=== PATIENT | female | born 1945 | race Caucasian/White ===

== ENCOUNTER → 2017-10-04 | Outpatient (CLI) | payer MEDICARE ==
[~2017-10-04] MED LIST: DOXYCYCLINE HY100 MG PO; LEVOTHYROXINE50 MCG PO; LISINOPRIL-HCT1 EAC1 PO; MELOXICAM7.5 MG PO; METFORMIN HCL500 MG PO
--- NOTE | 2017-10-04 18:19 | Diagnostic Imaging Report ---
PROCEDURE:X-RAY ABDOMEN - KUB COMPARISON:Patients [facility], CT, CT ABDOMEN/PELVIS WO, 04/21/2017, 21:21. Patients [facility], DX, ABDOMEN-1VIEW (KUB), 06/01/2017, 9:58. INDICATIONS:KIDNEY STONE CHECK UP FINDINGS: Nonobstructive bowel gas pattern with moderate amount of retained stool. 9 mm radiopaque density projecting over the left 12th rib corresponds to calcification in the splenic artery. Multiple curvilinear radiopaque densities project over the left renal shadow, and correspond to abdominal wall hernia mesh bea. No definite calcifications project over the renal shadows or expected course of the ureters. No acute bony abnormalities. 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 CONCLUSION: No suspicious radiopaque densities project over the genitourinary tract Rubin Hanna M.D. Dictated by: Rubin Hanna M.D. on 10/04/2017 at 18:29 Electronically approved by: Rubin Hanna M.D. on 10/04/2017 at 18:29
== END ==
LOC: RAD 17:01
PROVIDERS: ATTEND Urology
DX: N20.0 Calculus of kidney (principal)
CPT/HCPCS: 74018

== ENCOUNTER 2021-12-16 12:20 | Inpatient (IN) | payer MEDICARE ==
[~2021-12-16] VITALS: Ht 152.4 cm; Wt 111.3 kg
[~2021-12-16 12:20] MED LIST changes: +PREDNISONE 20 MG TAB PO SCH
[2021-12-16] MEDS ORDERED: ALBUTEROL/IPRATROPIUM 3 ML NEB NEB ONE (12:30)
[2021-12-16] MEDS ORDERED: METHYLPREDNISOLONE SOD SUCC 125 MG/2ML VIAL IV SCH (12:33)
[2021-12-16 12:45] LABS: BASOPHILS # (AUTO) 0.1 (0.0-0.1); BASOPHILS % 0.6 % (0.0-1.0); EOSINOPHILS # (AUTO) 0.1 (0.0-0.4); EOSINOPHILS % 0.6 % (0.0-6.0); HEMATOCRIT 43.7 % (34.2-44.1); HEMOGLOBIN 13.2 g/dL (12.0-16.0); LYMPHOCYTES # (AUTO) 2.2 (1.0-3.2); LYMPHOCYTES % 24.9 % (18.0-39.1); MEAN CORPUSCULAR HEMOGLOBIN 26.9 pg (28-32); MEAN CORPUSCULAR HGB CONC 30.2 g/dL (31-35); MONOCYTES # (AUTO) 0.7 (0.2-0.8); MONOCYTES % 8.3 % (4.4-11.3); NEUTROPHILS # (AUTO) 5.6 (2.1-6.9); NEUTROPHILS % 64.7 % (38.7-80.0); PLATELET COUNT 262 x10e3/uL (140-360); RED BLOOD COUNT 4.91 x10e6/uL (3.6-5.1); RED CELL DISTRIBUTION WIDTH 15.5 % (11.7-14.4)
[2021-12-16 12:53] LABS: INR 0.98; PROTHROMBIN TIME 13.9 seconds (11.9-14.5)
[2021-12-16 12:54] LABS: PARTIAL THROMBOPLASTIN TIME 24.3 seconds (23.8-35.5)
[2021-12-16] MEDS ORDERED: SODIUM CHLORIDE 0.9% 1000ML 1,000 ML IV STA (12:58)
[2021-12-16 13:05] LABS: ALBUMIN 3.8 g/dL (3.5-5.0); ALBUMIN/GLOBULIN RATIO 1.3 (0.8-2.0); ANION GAP 13.6 mmol/L (8-16); CALCIUM 8.2 mg/dL (8.4-10.2); CREATININE, SERUM 1.07 mg/dL (0.57-1.11); POTASSIUM 3.6 mmol/L (3.5-5.1)
[2021-12-16 13:25] LABS: ABG PH 7.36 (7.35-7.45)
[2021-12-16 13:26] LABS: ABG HCO3 41 mmol/L (22-26); ABG PCO2 72 mmHg (35-45); ABG PO2 430 mmHg (80-105); ABG TCO2 43
[2021-12-16] MEDS ORDERED: IOPAMIDOL 370 MG/ML 100 ML INFUS..BTL INJ ONE (14:20)
[2021-12-16] MEDS ORDERED: SODIUM CHLORIDE 0.9% 1000ML 1,000 ML IV SCH (15:15)
[2021-12-16 15:51] LABS: CLARITY,URINE CLOUDY (CLEAR); COLOR,URINE YELLOW (YELLOW); KETONES,URINE NEGATIVE (NEGATIVE); LEUKOCYTE ESTERASE ,URINE TRACE (NEGATIVE); NITRITE,URINE NEGATIVE (NEGATIVE); PROTEIN,URINE DIPSTICK 1+ (NEGATIVE); URINE UROBILINOGEN 0.2 mg/dL (0.2 - 1)
[2021-12-16 16:05] LABS: BACTERIA,URINE MODERATE /HPF; EPITHELIAL CELLS,URINE MANY /LPF
[2021-12-16] MEDS ORDERED: FUROSEMIDE 40 MG TAB PO ONE (17:00)
[2021-12-16] MEDS: DOXYCYCLINE HYCLATE TABLET 100 MG TAB PO SCH (18:38)
[2021-12-16] MEDS: ALBUTEROL/IPRATROPIUM 3 ML NEB NEB SCH ×2 (19:15→23:20)
[2021-12-16 20:00] VITALS: BP 166/72
[2021-12-16 20:38] LABS: CREATINE KINASE MB 2.7 ng/mL (0-5.0)
[2021-12-16] MEDS: HEPARIN SOD (PORCINE) 5,000 UNIT/ML VIAL SC SCH (21:03)
[2021-12-16 21:15] VITALS: BP 166/72
[2021-12-16] MEDS ORDERED: EDARBI40 MG PO (22:33)
[2021-12-16 23:31] VITALS: BP 166/72
[2021-12-17] VITALS (8 sets, daily range): BP systolic 118–156; BP diastolic 60–80
[2021-12-17] MEDS: ALBUTEROL/IPRATROPIUM 3 ML NEB NEB SCH ×6 (03:30→23:41)
[2021-12-17] MEDS: LEVOTHYROXINE SODIUM 50 MCG TAB PO SCH (05:16)
[2021-12-17 05:46] LABS: BASOPHILS % 0.1 % (0.0-1.0); LYMPHOCYTES # (AUTO) 0.7 (1.0-3.2); LYMPHOCYTES % 8.8 % (18.0-39.1); MEAN CORPUSCULAR HEMOGLOBIN 26.5 pg (28-32); MEAN CORPUSCULAR VOLUME 88.5 fL (81-99); MONOCYTES # (AUTO) 0.7 (0.2-0.8); MONOCYTES % 9.5 % (4.4-11.3); NEUTROPHILS # (AUTO) 5.9 (2.1-6.9); NEUTROPHILS % 80.8 % (38.7-80.0); PLATELET COUNT 248 x10e3/uL (140-360); RED BLOOD COUNT 4.52 x10e6/uL (3.6-5.1); RED CELL DISTRIBUTION WIDTH 15.3 % (11.7-14.4)
[2021-12-17 06:04] LABS: ANION GAP 15.7 mmol/L (8-16); CREATININE, SERUM 1.16 mg/dL (0.57-1.11); POTASSIUM 3.7 mmol/L (3.5-5.1)
[2021-12-17 06:33] LABS: % IRON SATURATION 5 % (15-50); IRON 27 ug/dL (50-170); TOTAL IRON BINDING CAPACITY 494 ug/dL (261-478); TRANSFERRIN 353 mg/dL (180-382)
[2021-12-17 06:52] LABS: CREATINE KINASE MB 2.6 ng/mL (0-5.0)
[2021-12-17] MEDS: PREDNISONE 20 MG TAB PO SCH ×2 (08:00→17:27)
[2021-12-17] MEDS ORDERED: FUROSEMIDE 40 MG TAB PO ONE (09:00)
[2021-12-17] MEDS: LISINOPRIL 20 MG TAB PO SCH (09:00)
[2021-12-17] MEDS: IRON SUCROSE 100 MG in SODIUM CHLORIDE 0.9% 100 ML 100 ML IV SCH (10:00)
[2021-12-17] MEDS: HYDROCHLOROTHIAZIDE 25 MG TAB PO SCH (10:22)
[2021-12-17] MEDS: DOXYCYCLINE HYCLATE TABLET 100 MG TAB PO SCH (10:26)
[2021-12-17] MEDS: HEPARIN SOD (PORCINE) 5,000 UNIT/ML VIAL SC SCH ×2 (10:34→21:06)
[2021-12-18] VITALS (8 sets, daily range): BP systolic 130–151; BP diastolic 55–90
[2021-12-18] MEDS: ALBUTEROL/IPRATROPIUM 3 ML NEB NEB SCH ×6 (03:45→23:09)
[2021-12-18] MEDS: LEVOTHYROXINE SODIUM 50 MCG TAB PO SCH (05:15)
[2021-12-18] MEDS: HYDROCHLOROTHIAZIDE 25 MG TAB PO SCH (09:04)
[2021-12-18] MEDS: HEPARIN SOD (PORCINE) 5,000 UNIT/ML VIAL SC SCH ×2 (09:04→21:14)
[2021-12-18] MEDS: DOXYCYCLINE HYCLATE TABLET 100 MG TAB PO SCH (09:05)
[2021-12-18] MEDS: PREDNISONE 20 MG TAB PO SCH ×2 (09:05→16:59)
[2021-12-18] MEDS ORDERED: SODIUM CHLORIDE 0.9% 250ML 250 ML ONE (09:23)
[2021-12-18] MEDS: IRON SUCROSE 100 MG in SODIUM CHLORIDE 0.9% 100 ML 100 ML IV SCH (11:22)
[2021-12-18] MEDS: METOPROLOL TARTRATE INJ 1 MG/ML VIAL IV PRN (22:28)
[2021-12-19] VITALS (8 sets, daily range): BP systolic 133–164; BP diastolic 53–71
[2021-12-19] MEDS: ALBUTEROL/IPRATROPIUM 3 ML NEB NEB SCH ×6 (03:50→22:25)
[2021-12-19] MEDS: LEVOTHYROXINE SODIUM 50 MCG TAB PO SCH (05:57)
[2021-12-19] MEDS: LISINOPRIL 20 MG TAB PO SCH (10:02)
[2021-12-19] MEDS: HYDROCHLOROTHIAZIDE 25 MG TAB PO SCH (10:02)
[2021-12-19] MEDS: IRON SUCROSE 100 MG in SODIUM CHLORIDE 0.9% 100 ML 100 ML IV SCH (10:03)
[2021-12-19] MEDS: PREDNISONE 20 MG TAB PO SCH (10:03)
[2021-12-19] MEDS: DOXYCYCLINE HYCLATE TABLET 100 MG TAB PO SCH (10:53)
[2021-12-19] MEDS: HEPARIN SOD (PORCINE) 5,000 UNIT/ML VIAL SC SCH (11:02)
[2021-12-19] MEDS: ENOXAPARIN SOD INJ 120 MG/0.8 ML SYR SC SCH (20:50)
[2021-12-19] MEDS: FUROSEMIDE INJ 10 MG/ML 4 ML VIAL IV SCH (20:50)
[2021-12-20] VITALS (9 sets, daily range): BP systolic 100–167; BP diastolic 50–95
[2021-12-20] MEDS: ALBUTEROL/IPRATROPIUM 3 ML NEB NEB SCH ×6 (02:38→23:10)
[2021-12-20] MEDS: ENOXAPARIN SOD INJ 120 MG/0.8 ML SYR SC SCH ×2 (05:30→17:21)
[2021-12-20] MEDS: LEVOTHYROXINE SODIUM 50 MCG TAB PO SCH (05:30)
[2021-12-20 06:03] LABS: BASOPHILS % 0.3 % (0.0-1.0); EOSINOPHILS % 0.4 % (0.0-6.0); HEMATOCRIT 40.1 % (34.2-44.1); HEMOGLOBIN 12.3 g/dL (12.0-16.0); LYMPHOCYTES # (AUTO) 1.1 (1.0-3.2); LYMPHOCYTES % 11.8 % (18.0-39.1); MEAN CORPUSCULAR HGB CONC 30.7 g/dL (31-35); MEAN CORPUSCULAR VOLUME 87.9 fL (81-99); MONOCYTES # (AUTO) 1.2 (0.2-0.8); MONOCYTES % 12.5 % (4.4-11.3); NEUTROPHILS % 72.3 % (38.7-80.0); PLATELET COUNT 238 x10e3/uL (140-360); RED BLOOD COUNT 4.56 x10e6/uL (3.6-5.1); RED CELL DISTRIBUTION WIDTH 15.4 % (11.7-14.4)
[2021-12-20 06:37] LABS: ANION GAP 13.4 mmol/L (8-16); CALCIUM 9.6 mg/dL (8.4-10.2); CREATININE, SERUM 1.03 mg/dL (0.57-1.11); POTASSIUM 3.4 mmol/L (3.5-5.1)
[2021-12-20] MEDS: PREDNISONE 20 MG TAB PO SCH (08:59)
[2021-12-20] MEDS: FUROSEMIDE INJ 10 MG/ML 4 ML VIAL IV SCH (08:59)
[2021-12-20] MEDS: LISINOPRIL 20 MG TAB PO SCH ×2 (09:00)
[2021-12-20] MEDS ORDERED: DILTIAZEM HCL ER 120 MG CAP PO SCH (09:00)
[2021-12-20] MEDS: DOXYCYCLINE HYCLATE TABLET 100 MG TAB PO SCH (09:00)
[2021-12-20] MEDS: METOPROLOL TARTRATE INJ 1 MG/ML VIAL IV PRN ×2 (12:57→21:56)
[2021-12-20] MEDS: ACETAZOLAMIDE 250 MG TAB PO SCH (17:21)
[2021-12-21] MEDS: ALBUTEROL/IPRATROPIUM 3 ML NEB NEB SCH ×6 (03:10→23:35)
[2021-12-21 04:00] VITALS: BP 134/51
[2021-12-21] MEDS ORDERED: DEXTROSE 50% SYRINGE 50 ML IV PRN (05:00)
[2021-12-21] MEDS: ENOXAPARIN SOD INJ 120 MG/0.8 ML SYR SC SCH ×2 (05:22→17:34)
[2021-12-21] MEDS: LEVOTHYROXINE SODIUM 50 MCG TAB PO SCH (05:22)
[2021-12-21 05:33] LABS: BASOPHILS % 0.3 % (0.0-1.0); EOSINOPHILS # (AUTO) 0.1 (0.0-0.4); EOSINOPHILS % 0.4 % (0.0-6.0); HEMATOCRIT 42.2 % (34.2-44.1); HEMOGLOBIN 12.9 g/dL (12.0-16.0); LYMPHOCYTES # (AUTO) 1.1 (1.0-3.2); LYMPHOCYTES % 9.5 % (18.0-39.1); MEAN CORPUSCULAR HEMOGLOBIN 27.1 pg (28-32); MEAN CORPUSCULAR HGB CONC 30.6 g/dL (31-35); MEAN CORPUSCULAR VOLUME 88.7 fL (81-99); MONOCYTES # (AUTO) 1.1 (0.2-0.8); MONOCYTES % 9.8 % (4.4-11.3); NEUTROPHILS % 77.8 % (38.7-80.0); PLATELET COUNT 246 x10e3/uL (140-360); RED BLOOD COUNT 4.76 x10e6/uL (3.6-5.1); RED CELL DISTRIBUTION WIDTH 15.7 % (11.7-14.4)
[2021-12-21 06:00] LABS: ANION GAP 15.4 mmol/L (8-16); CALCIUM 9.3 mg/dL (8.4-10.2); CREATININE, SERUM 1.41 mg/dL (0.57-1.11); POTASSIUM 3.4 mmol/L (3.5-5.1)
[2021-12-21 07:59] VITALS: BP 123/62
[2021-12-21] MEDS: INSULIN LISPRO 100 UNIT/1 ML 3ML VIAL SQ SCH ×4 (08:00→22:47)
[2021-12-21 08:32] VITALS: BP 123/62
[2021-12-21] MEDS: FUROSEMIDE INJ 10 MG/ML 4 ML VIAL IV SCH (08:50)
[2021-12-21] MEDS: PREDNISONE 20 MG TAB PO SCH (08:50)
[2021-12-21] MEDS: LISINOPRIL 20 MG TAB PO SCH (08:54)
[2021-12-21] MEDS: DOXYCYCLINE HYCLATE TABLET 100 MG TAB PO SCH (08:55)
[2021-12-21] MEDS ORDERED: DILTIAZEM HCL 180 MG CAP ER PO SCH (09:00)
[2021-12-21] MEDS: ACETAZOLAMIDE 250 MG TAB PO SCH (09:03)
[2021-12-21] MEDS ORDERED: POTASSIUM CHLORIDE 20 MEQ TAB CR PO PRN (09:45)
[2021-12-21 11:36] VITALS: BP 116/46
[2021-12-21] MEDS: DILTIAZEM HCL CR 120MG TAB PO SCH (17:33)
[2021-12-21 20:00] VITALS: BP 144/49
[2021-12-21 23:53] VITALS: BP 106/56
[2021-12-22] VITALS (8 sets, daily range): BP systolic 118–150; BP diastolic 31–52
[2021-12-22] MEDS: ALBUTEROL/IPRATROPIUM 3 ML NEB NEB SCH ×6 (03:15→23:00)
[2021-12-22] MEDS: ENOXAPARIN SOD INJ 120 MG/0.8 ML SYR SC SCH ×2 (05:18→16:42)
[2021-12-22] MEDS: LEVOTHYROXINE SODIUM 50 MCG TAB PO SCH (05:18)
[2021-12-22] MEDS ORDERED: PREDNISONE 10 MG TAB PO SCH (07:30)
[2021-12-22] MEDS: FUROSEMIDE INJ 10 MG/ML 4 ML VIAL IV SCH (08:53)
[2021-12-22] MEDS: ACETAZOLAMIDE 250 MG TAB PO SCH (08:54)
[2021-12-22] MEDS: INSULIN LISPRO 100 UNIT/1 ML 3ML VIAL SQ SCH ×4 (08:54→21:35)
[2021-12-22] MEDS: DILTIAZEM HCL CR 120MG TAB PO SCH (08:54)
[2021-12-22] MEDS: DOXYCYCLINE HYCLATE TABLET 100 MG TAB PO SCH (08:55)
[2021-12-22] MEDS: LISINOPRIL 20 MG TAB PO SCH (08:55)
[2021-12-22 12:28] LABS: ANION GAP 14.3 mmol/L (8-16); CALCIUM 8.7 mg/dL (8.4-10.2); CREATININE, SERUM 1.17 mg/dL (0.57-1.11); POTASSIUM 3.3 mmol/L (3.5-5.1)
[2021-12-22] MEDS: DILTIAZEM HCL 180 MG CAP ER PO SCH (16:41)
[2021-12-23] VITALS (11 sets, daily range): BP systolic 105–160; BP diastolic 43–82
[2021-12-23] MEDS: ALBUTEROL/IPRATROPIUM 3 ML NEB NEB SCH ×2 (02:40→06:54)
[2021-12-23 05:03] LABS: BASOPHILS % 0.4 % (0.0-1.0); EOSINOPHILS # (AUTO) 0.1 (0.0-0.4); EOSINOPHILS % 0.8 % (0.0-6.0); HEMATOCRIT 37.2 % (34.2-44.1); HEMOGLOBIN 11.3 g/dL (12.0-16.0); LYMPHOCYTES # (AUTO) 1.2 (1.0-3.2); LYMPHOCYTES % 11.1 % (18.0-39.1); MEAN CORPUSCULAR HEMOGLOBIN 26.9 pg (28-32); MEAN CORPUSCULAR HGB CONC 30.4 g/dL (31-35); MEAN CORPUSCULAR VOLUME 88.6 fL (81-99); MONOCYTES % 9.3 % (4.4-11.3); NEUTROPHILS # (AUTO) 8.1 (2.1-6.9); NEUTROPHILS % 74.4 % (38.7-80.0); PLATELET COUNT 203 x10e3/uL (140-360); RED CELL DISTRIBUTION WIDTH 16.1 % (11.7-14.4)
[2021-12-23] MEDS: ENOXAPARIN SOD INJ 120 MG/0.8 ML SYR SC SCH ×2 (05:12→17:11)
[2021-12-23 05:36] LABS: ANION GAP 13.9 mmol/L (8-16); CALCIUM 8.6 mg/dL (8.4-10.2); CREATININE, SERUM 1.41 mg/dL (0.57-1.11); POTASSIUM 3.9 mmol/L (3.5-5.1)
[2021-12-23] MEDS: LEVOTHYROXINE SODIUM 50 MCG TAB PO SCH (05:45)
[2021-12-23] MEDS: INSULIN LISPRO 100 UNIT/1 ML 3ML VIAL SQ SCH ×4 (07:30→20:41)
[2021-12-23] MEDS: FUROSEMIDE INJ 10 MG/ML 4 ML VIAL IV SCH (08:31)
[2021-12-23] MEDS: DILTIAZEM HCL 180 MG CAP ER PO SCH ×2 (08:31→17:11)
[2021-12-23] MEDS: ACETAZOLAMIDE 250 MG TAB PO SCH (08:31)
[2021-12-23] MEDS: LISINOPRIL 20 MG TAB PO SCH (08:31)
[2021-12-23] MEDS: DOXYCYCLINE HYCLATE TABLET 100 MG TAB PO SCH (08:31)
[2021-12-23] MEDS: IPRATROPIUM BROMIDE 0.02% 2.5 ML NEB NEB SCH ×2 (13:25→19:10)
[2021-12-23] MEDS: ALBUTEROL SULF 0.083% NEB SOLN 3 ML NEB NEB SCH ×2 (13:25→19:10)
[2021-12-24] VITALS (10 sets, daily range): BP systolic 125–152; BP diastolic 40–58
[2021-12-24] MEDS: IPRATROPIUM BROMIDE 0.02% 2.5 ML NEB NEB SCH ×4 (00:45→19:25)
[2021-12-24] MEDS: ALBUTEROL SULF 0.083% NEB SOLN 3 ML NEB NEB SCH ×4 (00:45→19:25)
[2021-12-24] MEDS: ENOXAPARIN SOD INJ 120 MG/0.8 ML SYR SC SCH (05:04)
[2021-12-24] MEDS: LEVOTHYROXINE SODIUM 50 MCG TAB PO SCH (05:26)
[2021-12-24] MEDS: INSULIN LISPRO 100 UNIT/1 ML 3ML VIAL SQ SCH ×4 (07:30→20:18)
[2021-12-24] MEDS: LISINOPRIL 20 MG TAB PO SCH (08:38)
[2021-12-24] MEDS: DILTIAZEM HCL 180 MG CAP ER PO SCH ×2 (08:38→16:35)
[2021-12-24] MEDS: FUROSEMIDE INJ 10 MG/ML 4 ML VIAL IV SCH (08:38)
[2021-12-24] MEDS: ACETAZOLAMIDE 250 MG TAB PO SCH (08:38)
[2021-12-24 11:24] LABS: ANION GAP 15.2 mmol/L (8-16); CREATININE, SERUM 1.19 mg/dL (0.57-1.11); POTASSIUM 4.2 mmol/L (3.5-5.1)
[2021-12-24] MEDS: TRAMADOL HCL 50 MG TAB PO PRN (20:16)
[2021-12-24] MEDS: ONDANSETRON HCL INJ 2MG/ML 2ML 2 MG/ML VIAL IV PRN (20:16)
[2021-12-24] MEDS: Morphine 2mg Syringe 2 MG/ML SYR IV PRN (22:02)
[2021-12-24] MEDS ORDERED: DIATRIZOATE MEGL/DIATRIZOA SOD 30 ML BTL PO ONE (22:03)
[2021-12-24] MEDS ORDERED: IOPAMIDOL 370 MG/ML 100 ML INFUS..BTL INJ ONE (23:02)
[2021-12-25] VITALS (17 sets, daily range): BP systolic 84–143; BP diastolic 28–70
[2021-12-25] MEDS: IPRATROPIUM BROMIDE 0.02% 2.5 ML NEB NEB SCH ×4 (00:40→20:00)
[2021-12-25] MEDS: ALBUTEROL SULF 0.083% NEB SOLN 3 ML NEB NEB SCH ×4 (00:40→20:00)
[2021-12-25 01:03] LABS: BASOPHILS # (AUTO) 0.1 (0.0-0.1); BASOPHILS % 0.3 % (0.0-1.0); EOSINOPHILS # (AUTO) 0.1 (0.0-0.4); EOSINOPHILS % 0.3 % (0.0-6.0); HEMATOCRIT 35.4 % (34.2-44.1); HEMOGLOBIN 10.7 g/dL (12.0-16.0); LYMPHOCYTES # (AUTO) 0.8 (1.0-3.2); LYMPHOCYTES % 5.2 % (18.0-39.1); MEAN CORPUSCULAR HGB CONC 30.2 g/dL (31-35); MEAN CORPUSCULAR VOLUME 89.4 fL (81-99); MONOCYTES # (AUTO) 1.3 (0.2-0.8); MONOCYTES % 8.3 % (4.4-11.3); NEUTROPHILS # (AUTO) 12.6 (2.1-6.9); NEUTROPHILS % 81.9 % (38.7-80.0); PLATELET COUNT 187 x10e3/uL (140-360); RED BLOOD COUNT 3.96 x10e6/uL (3.6-5.1); RED CELL DISTRIBUTION WIDTH 16.2 % (11.7-14.4)
[2021-12-25 01:20] LABS: ALBUMIN 3.3 g/dL (3.5-5.0); ALBUMIN/GLOBULIN RATIO 1.2 (0.8-2.0); ANION GAP 14.1 mmol/L (8-16); CALCIUM 8.9 mg/dL (8.4-10.2); CREATININE, SERUM 1.34 mg/dL (0.57-1.11); POTASSIUM 4.1 mmol/L (3.5-5.1)
[2021-12-25] MEDS: Morphine 2mg Syringe 2 MG/ML SYR IV PRN (01:32)
[2021-12-25] MEDS: TRAMADOL HCL 50 MG TAB PO PRN (02:09)
[2021-12-25] MEDS: ONDANSETRON HCL INJ 2MG/ML 2ML 2 MG/ML VIAL IV PRN ×2 (04:54→20:29)
[2021-12-25] MEDS: HYDROMORPHONE 1MG/1ML INJ IV PRN ×3 (04:54→17:45)
[2021-12-25] MEDS: LEVOTHYROXINE SODIUM 50 MCG TAB PO SCH (06:13)
[2021-12-25] MEDS: INSULIN LISPRO 100 UNIT/1 ML 3ML VIAL SQ SCH ×4 (07:30→21:00)
[2021-12-25] MEDS: LISINOPRIL 20 MG TAB PO SCH (09:00)
[2021-12-25] MEDS ORDERED: APIXABAN 5 MG TABLET PO SCH (09:00)
[2021-12-25] MEDS: DILTIAZEM HCL 180 MG CAP ER PO SCH ×2 (09:00→17:00)
[2021-12-25] MEDS: FUROSEMIDE INJ 10 MG/ML 4 ML VIAL IV SCH (09:00)
[2021-12-25] MEDS: ACETAZOLAMIDE 250 MG TAB PO SCH (09:36)
[2021-12-25] MEDS ORDERED: ONDANSETRON HCL 4 MG ORAL DISINTEGRATING TAB PO PRN (11:15)
[2021-12-25 14:47] LABS: BASOPHILS # (AUTO) 0.1 (0.0-0.1); BASOPHILS % 0.3 % (0.0-1.0); EOSINOPHILS % 0.1 % (0.0-6.0); HEMATOCRIT 32.7 % (34.2-44.1); HEMOGLOBIN 9.9 g/dL (12.0-16.0); LYMPHOCYTES # (AUTO) 0.8 (1.0-3.2); LYMPHOCYTES % 4.5 % (18.0-39.1); MEAN CORPUSCULAR HGB CONC 30.3 g/dL (31-35); MEAN CORPUSCULAR VOLUME 89.3 fL (81-99); MONOCYTES # (AUTO) 1.7 (0.2-0.8); MONOCYTES % 8.9 % (4.4-11.3); NEUTROPHILS % 80.5 % (38.7-80.0); PLATELET COUNT 188 x10e3/uL (140-360); RED BLOOD COUNT 3.66 x10e6/uL (3.6-5.1); RED CELL DISTRIBUTION WIDTH 16.3 % (11.7-14.4)
[2021-12-25 15:07] LABS: ALBUMIN 3.2 g/dL (3.5-5.0); ALBUMIN/GLOBULIN RATIO 1.2 (0.8-2.0); ANION GAP 15.9 mmol/L (8-16); CALCIUM 8.6 mg/dL (8.4-10.2); POTASSIUM 4.9 mmol/L (3.5-5.1)
[2021-12-25 15:09] LABS: CREATININE, SERUM 2.33 mg/dL (0.57-1.11)
[2021-12-25 18:44] LABS: BASOPHILS # (AUTO) 0.1 (0.0-0.1); BASOPHILS % 0.4 % (0.0-1.0); HEMATOCRIT 31.6 % (34.2-44.1); HEMOGLOBIN 9.5 g/dL (12.0-16.0); LYMPHOCYTES # (AUTO) 1.3 (1.0-3.2); LYMPHOCYTES % 6.2 % (18.0-39.1); MEAN CORPUSCULAR HEMOGLOBIN 27.1 pg (28-32); MEAN CORPUSCULAR HGB CONC 30.1 g/dL (31-35); MEAN CORPUSCULAR VOLUME 90.3 fL (81-99); MONOCYTES # (AUTO) 1.9 (0.2-0.8); NEUTROPHILS # (AUTO) 16.7 (2.1-6.9); NEUTROPHILS % 78.8 % (38.7-80.0); PLATELET COUNT 173 x10e3/uL (140-360); RED CELL DISTRIBUTION WIDTH 16.6 % (11.7-14.4)
[2021-12-25] MEDS ORDERED: SODIUM CHLORIDE 0.9% 1000ML 750 ML IV SCH (19:00)
[2021-12-25 19:07] LABS: ALBUMIN 3.1 g/dL (3.5-5.0); ALBUMIN/GLOBULIN RATIO 1.3 (0.8-2.0); ANION GAP 16.2 mmol/L (8-16); CALCIUM 8.4 mg/dL (8.4-10.2); CREATININE, SERUM 2.7 mg/dL (0.57-1.11)
[2021-12-25 19:08] LABS: POTASSIUM 5.2 mmol/L (3.5-5.1)
[2021-12-25] MEDS ORDERED: SODIUM CHLORIDE 0.9% 500ML 500 ML ONE (19:42)
[2021-12-25] MEDS ORDERED: SODIUM CHLORIDE 0.9% 500ML 500 ML IV ONE (20:00)
[2021-12-25] MEDS ORDERED: SODIUM CHLORIDE 0.9% 1000ML 500 ML IV ONE ×2 (21:45→22:45)
[2021-12-26] VITALS (53 sets, daily range): BP systolic 83–132; BP diastolic 24–99
[2021-12-26] MEDS: ONDANSETRON HCL INJ 2MG/ML 2ML 2 MG/ML VIAL IV PRN ×2 (00:07→20:07)
[2021-12-26] MEDS: IPRATROPIUM BROMIDE 0.02% 2.5 ML NEB NEB SCH ×5 (00:26→23:25)
[2021-12-26] MEDS: ALBUTEROL SULF 0.083% NEB SOLN 3 ML NEB NEB SCH ×5 (00:27→23:25)
[2021-12-26] MEDS ORDERED: SODIUM CHLORIDE 0.9% 1000ML 1,000 ML IV ONE (01:15)
[2021-12-26] MEDS ORDERED: ACETAMINOPHEN 1000 MG/100 ML IV PRN (01:15)
[2021-12-26] MEDS ORDERED: SODIUM CHLORIDE 0.9% 250ML 250 ML IV PRN (01:30)
[2021-12-26 02:10] LABS: BASOPHILS # (AUTO) 0.1 (0.0-0.1); BASOPHILS % 0.4 % (0.0-1.0); HEMATOCRIT 29.2 % (34.2-44.1); HEMOGLOBIN 8.7 g/dL (12.0-16.0); LYMPHOCYTES # (AUTO) 1.6 (1.0-3.2); LYMPHOCYTES % 7.1 % (18.0-39.1); MEAN CORPUSCULAR HGB CONC 29.8 g/dL (31-35); MEAN CORPUSCULAR VOLUME 90.7 fL (81-99); MONOCYTES # (AUTO) 1.9 (0.2-0.8); MONOCYTES % 8.6 % (4.4-11.3); NEUTROPHILS # (AUTO) 17.4 (2.1-6.9); NEUTROPHILS % 79.5 % (38.7-80.0); RED BLOOD COUNT 3.22 x10e6/uL (3.6-5.1); RED CELL DISTRIBUTION WIDTH 17.2 % (11.7-14.4)
[2021-12-26 02:12] LABS: PLATELET COUNT 118 x10e3/uL (140-360)
[2021-12-26 02:30] LABS: INR 1.03; PROTHROMBIN TIME 14.4 seconds (11.9-14.5)
[2021-12-26 02:39] LABS: ALBUMIN 2.8 g/dL (3.5-5.0); ALBUMIN/GLOBULIN RATIO 1.1 (0.8-2.0); ANION GAP 18.2 mmol/L (8-16); CALCIUM 7.4 mg/dL (8.4-10.2); CREATININE, SERUM 2.9 mg/dL (0.57-1.11); POTASSIUM 5.2 mmol/L (3.5-5.1)
[2021-12-26] MEDS ORDERED: CIPROFLOXACIN 400 MG/D5W 200ML 200 ML IV SCH (03:15)
[2021-12-26] MEDS ORDERED: METOCLOPRAMIDE HCL 10 MG/2ML VIAL IV ONE (04:45)
[2021-12-26] MEDS: SODIUM CHLORIDE 0.9% 1000ML 1,000 ML IV SCH ×3 (05:13→21:34)
[2021-12-26] MEDS ORDERED: SCOPOLAMINE 1.3 MG PATCH TOP ONE (05:15)
[2021-12-26] MEDS: SCOPOLAMINE 1.3 MG PATCH TOP SCH (05:25)
[2021-12-26] MEDS: METRONIDAZOLE 500MG/NS 100ML 100 ML IV SCH ×3 (05:25→21:02)
[2021-12-26] MEDS: LEVOTHYROXINE SODIUM 50 MCG TAB PO SCH (06:00)
[2021-12-26] MEDS: METOCLOPRAMIDE HCL 10 MG/2ML VIAL IV SCH ×3 (06:25→18:00)
[2021-12-26] MEDS ORDERED: SODIUM CHLORIDE 0.9% 1000ML 500 ML IV ONE ×2 (06:30→09:45)
[2021-12-26 06:39] LABS: AMYLASE 43 U/L (25-125); LIPASE 17 U/L (8-78)
[2021-12-26 06:51] LABS: CLARITY,URINE CLOUDY (CLEAR); COLOR,URINE YELLOW (YELLOW); KETONES,URINE NEGATIVE (NEGATIVE); LEUKOCYTE ESTERASE ,URINE NEGATIVE (NEGATIVE); NITRITE,URINE NEGATIVE (NEGATIVE); PROTEIN,URINE DIPSTICK 2+ (NEGATIVE); URINE UROBILINOGEN 0.2 mg/dL (0.2 - 1)
[2021-12-26 07:20] LABS: BACTERIA,URINE MANY /HPF; EPITHELIAL CELLS,URINE MODERATE /LPF
[2021-12-26] MEDS: INSULIN LISPRO 100 UNIT/1 ML 3ML VIAL SQ SCH ×4 (07:30→20:24)
[2021-12-26] MEDS ORDERED: BUMETANIDE INJ 0.25MG/ML 4ML VIAL IV STA (10:39)
[2021-12-26] MEDS: CIPROFLOXACIN 400 MG/D5W 200ML 200 ML IV SCH (11:00)
[2021-12-26] MEDS ORDERED: SOD POLYSTYRENE SULFONATE SUSP 15 GM/60 ML BTL PO ONE ×2 (11:00→17:30)
[2021-12-26 11:01] LABS: BASOPHILS # (AUTO) 0.1 (0.0-0.1); BASOPHILS % 0.2 % (0.0-1.0); HEMATOCRIT 25.7 % (34.2-44.1); HEMOGLOBIN 7.7 g/dL (12.0-16.0); LYMPHOCYTES # (AUTO) 1.1 (1.0-3.2); LYMPHOCYTES % 4.9 % (18.0-39.1); MEAN CORPUSCULAR HEMOGLOBIN 26.8 pg (28-32); MEAN CORPUSCULAR VOLUME 89.5 fL (81-99); MONOCYTES # (AUTO) 1.9 (0.2-0.8); MONOCYTES % 8.5 % (4.4-11.3); NEUTROPHILS # (AUTO) 18.4 (2.1-6.9); NEUTROPHILS % 82.7 % (38.7-80.0); PLATELET COUNT 149 x10e3/uL (140-360); RED BLOOD COUNT 2.87 x10e6/uL (3.6-5.1); RED CELL DISTRIBUTION WIDTH 17.2 % (11.7-14.4)
[2021-12-26 11:14] LABS: ALBUMIN 2.6 g/dL (3.5-5.0); ANION GAP 16.5 mmol/L (8-16); CREATININE, SERUM 3.19 mg/dL (0.57-1.11); POTASSIUM 4.5 mmol/L (3.5-5.1)
[2021-12-26 11:17] LABS: CALCIUM 6.8 mg/dL (8.4-10.2)
[2021-12-26] MEDS ORDERED: BUMETANIDE IV ONE (11:30)
[2021-12-26] MEDS ORDERED: SODIUM CHLORIDE 0.9% IV ONE (11:30)
[2021-12-26 11:46] LABS: MAGNESIUM 1.7 MG/DL (1.3-2.1); PHOSPHORUS 6.7 MG/DL (2.3-4.7)
[2021-12-26] MEDS ORDERED: ALBUMIN 5% 0.05 GM/ML BTL IV ONE (12:00)
[2021-12-26] MEDS ORDERED: SODIUM CHLORIDE 0.9% 250ML 250 ML IV ONE (12:00)
[2021-12-26] MEDS ORDERED: BUMETANIDE INJ 0.25MG/ML 4ML VIAL IV ONE ×2 (12:50→14:00)
[2021-12-26] MEDS ORDERED: BUMETANIDE 10 MG in SODIUM CHLORIDE 0.9% 60 ML IV SCH (13:00)
[2021-12-26] MEDS: BUMETANIDE 10 MG in SODIUM CHLORIDE 0.9% 60 ML IV SCH ×2 (14:15→17:26)
[2021-12-26 14:23] LABS: ABG HCO3 27 mmol/L (22-26); ABG PCO2 54 mmHg (35-45); ABG PH 7.31 (7.35-7.45); ABG PO2 77 mmHg (80-105); ABG TCO2 29
[2021-12-26] MEDS: NOREPINEPHRINE 8 MG/D5W 250 ML 250 ML IV SCH (18:15)
[2021-12-26 19:39] LABS: HEMATOCRIT 29.6 % (34.2-44.1); HEMOGLOBIN 9.1 g/dL (12.0-16.0)
[2021-12-27] VITALS (40 sets, daily range): BP systolic 83–177; BP diastolic 30–95
[2021-12-27] MEDS: HYDROMORPHONE 1MG/1ML INJ IV PRN ×2 (00:14→06:50)
[2021-12-27] MEDS: METOCLOPRAMIDE HCL 10 MG/2ML VIAL IV SCH ×4 (00:36→17:35)
[2021-12-27] MEDS: BUMETANIDE 10 MG in SODIUM CHLORIDE 0.9% 60 ML IV SCH ×2 (02:18→20:15)
[2021-12-27 03:01] LABS: BASOPHILS % 0.2 % (0.0-1.0); HEMATOCRIT 26.7 % (34.2-44.1); HEMOGLOBIN 8.2 g/dL (12.0-16.0); LYMPHOCYTES % 4.9 % (18.0-39.1); MEAN CORPUSCULAR HEMOGLOBIN 26.4 pg (28-32); MEAN CORPUSCULAR HGB CONC 30.7 g/dL (31-35); MONOCYTES # (AUTO) 1.7 (0.2-0.8); MONOCYTES % 8.5 % (4.4-11.3); NEUTROPHILS # (AUTO) 17.1 (2.1-6.9); NEUTROPHILS % 84.3 % (38.7-80.0); PLATELET COUNT 110 x10e3/uL (140-360); RED BLOOD COUNT 3.11 x10e6/uL (3.6-5.1); RED CELL DISTRIBUTION WIDTH 18.3 % (11.7-14.4)
[2021-12-27 03:12] LABS: MEAN CORPUSCULAR VOLUME 85.9 fL (81-99)
[2021-12-27 03:24] LABS: ALBUMIN 2.7 g/dL (3.5-5.0); ALBUMIN/GLOBULIN RATIO 1.1 (0.8-2.0); ANION GAP 16.1 mmol/L (8-16); CALCIUM 7.5 mg/dL (8.4-10.2); CREATININE, SERUM 3.41 mg/dL (0.57-1.11); POTASSIUM 4.1 mmol/L (3.5-5.1)
[2021-12-27] MEDS: LEVOTHYROXINE SODIUM 50 MCG TAB PO SCH (05:16)
[2021-12-27] MEDS: METRONIDAZOLE 500MG/NS 100ML 100 ML IV SCH (06:18)
[2021-12-27] MEDS: ALBUTEROL SULF 0.083% NEB SOLN 3 ML NEB NEB SCH ×4 (07:00→23:54)
[2021-12-27] MEDS: IPRATROPIUM BROMIDE 0.02% 2.5 ML NEB NEB SCH ×4 (07:00→23:52)
[2021-12-27] MEDS: INSULIN LISPRO 100 UNIT/1 ML 3ML VIAL SQ SCH ×4 (07:30→20:35)
[2021-12-27] MEDS: CIPROFLOXACIN 400 MG/D5W 200ML 200 ML IV SCH (09:16)
[2021-12-27] MEDS: ONDANSETRON HCL INJ 2MG/ML 2ML 2 MG/ML VIAL IV PRN (09:17)
[2021-12-27] MEDS: [UNRECOGNIZED DRUG - OTHER] IV SCH ×2 (11:33→20:07)
[2021-12-27] MEDS: MULTIVITAMINS IV SCH ×2 (11:33→20:07)
[2021-12-27] MEDS: FOLIC ACID IV SCH ×2 (11:33→20:07)
[2021-12-27 13:57] LABS: BASOPHILS # (AUTO) 0.1 (0.0-0.1); BASOPHILS % 0.2 % (0.0-1.0); HEMATOCRIT 27.1 % (34.2-44.1); HEMOGLOBIN 8.6 g/dL (12.0-16.0); LYMPHOCYTES # (AUTO) 0.9 (1.0-3.2); LYMPHOCYTES % 4.5 % (18.0-39.1); MEAN CORPUSCULAR HGB CONC 31.7 g/dL (31-35); MEAN CORPUSCULAR VOLUME 85.2 fL (81-99); MONOCYTES % 9.4 % (4.4-11.3); NEUTROPHILS # (AUTO) 17.3 (2.1-6.9); NEUTROPHILS % 83.3 % (38.7-80.0); PLATELET COUNT 110 x10e3/uL (140-360); RED BLOOD COUNT 3.18 x10e6/uL (3.6-5.1); RED CELL DISTRIBUTION WIDTH 18.1 % (11.7-14.4)
[2021-12-27 14:18] LABS: ALBUMIN 2.6 g/dL (3.5-5.0); ALBUMIN/GLOBULIN RATIO 0.9 (0.8-2.0); ANION GAP 15.8 mmol/L (8-16); CREATININE, SERUM 3.35 mg/dL (0.57-1.11); POTASSIUM 3.8 mmol/L (3.5-5.1)
[2021-12-27 14:27] LABS: CALCIUM 6.7 mg/dL (8.4-10.2)
[2021-12-27] MEDS: NOREPINEPHRINE 8 MG/D5W 250 ML 250 ML IV SCH (18:15)
[2021-12-27] MEDS ORDERED: CALCIUM GLUC 1 G/50 ML NACL 50 ML IV ONE (18:15)
[2021-12-28] VITALS (7 sets, daily range): BP systolic 133–154; BP diastolic 48–75
[2021-12-28] MEDS ORDERED: MAGNESIUM HYDROXIDE 30 ML UDC PO ONE ×2 (00:30→03:30)
[2021-12-28] MEDS: LEVOTHYROXINE SODIUM 50 MCG TAB PO SCH (03:59)
[2021-12-28] MEDS: METOCLOPRAMIDE HCL 10 MG/2ML VIAL IV SCH ×4 (06:00→17:17)
[2021-12-28] MEDS: IPRATROPIUM BROMIDE 0.02% 2.5 ML NEB NEB SCH ×3 (06:05→19:25)
[2021-12-28] MEDS: ALBUTEROL SULF 0.083% NEB SOLN 3 ML NEB NEB SCH ×3 (06:05→19:25)
[2021-12-28 06:26] LABS: BASOPHILS % 0.2 % (0.0-1.0); EOSINOPHILS % 0.1 % (0.0-6.0); HEMATOCRIT 27.9 % (34.2-44.1); HEMOGLOBIN 8.7 g/dL (12.0-16.0); LYMPHOCYTES # (AUTO) 1.2 (1.0-3.2); LYMPHOCYTES % 5.2 % (18.0-39.1); MEAN CORPUSCULAR HEMOGLOBIN 26.5 pg (28-32); MEAN CORPUSCULAR HGB CONC 31.2 g/dL (31-35); MEAN CORPUSCULAR VOLUME 85.1 fL (81-99); MONOCYTES # (AUTO) 1.9 (0.2-0.8); MONOCYTES % 8.5 % (4.4-11.3); NEUTROPHILS # (AUTO) 18.4 (2.1-6.9); NEUTROPHILS % 82.5 % (38.7-80.0); PLATELET COUNT 95 x10e3/uL (140-360); RED BLOOD COUNT 3.28 x10e6/uL (3.6-5.1); RED CELL DISTRIBUTION WIDTH 18.3 % (11.7-14.4)
[2021-12-28 06:54] LABS: ALBUMIN 2.6 g/dL (3.5-5.0); ALBUMIN/GLOBULIN RATIO 0.9 (0.8-2.0); ANION GAP 17.7 mmol/L (8-16); CREATININE, SERUM 3.51 mg/dL (0.57-1.11); MAGNESIUM 1.6 MG/DL (1.3-2.1); POTASSIUM 3.7 mmol/L (3.5-5.1)
[2021-12-28] MEDS: INSULIN LISPRO 100 UNIT/1 ML 3ML VIAL SQ SCH ×4 (07:30→21:00)
[2021-12-28] MEDS: DEXTROSE 5% 1,000 ML IV SCH (14:55)
[2021-12-28] MEDS: NOREPINEPHRINE 8 MG/D5W 250 ML 250 ML IV SCH (18:02)
[2021-12-29] VITALS (8 sets, daily range): BP systolic 105–154; BP diastolic 49–62
[2021-12-29] MEDS: METOCLOPRAMIDE HCL 10 MG/2ML VIAL IV SCH ×4 (00:20→18:02)
[2021-12-29] MEDS: DEXTROSE 5% 1,000 ML IV SCH ×3 (00:20→23:00)
[2021-12-29] MEDS: IPRATROPIUM BROMIDE 0.02% 2.5 ML NEB NEB SCH ×5 (02:15→20:50)
[2021-12-29] MEDS: ALBUTEROL SULF 0.083% NEB SOLN 3 ML NEB NEB SCH ×5 (02:15→22:50)
[2021-12-29] MEDS: LEVOTHYROXINE SODIUM 50 MCG TAB PO SCH (05:01)
[2021-12-29] MEDS: SCOPOLAMINE 1.3 MG PATCH TOP SCH (05:45)
[2021-12-29 06:00] LABS: BASOPHILS # (AUTO) 0.1 (0.0-0.1); BASOPHILS % 0.3 % (0.0-1.0); EOSINOPHILS # (AUTO) 0.1 (0.0-0.4); EOSINOPHILS % 0.4 % (0.0-6.0); HEMATOCRIT 27.1 % (34.2-44.1); HEMOGLOBIN 8.5 g/dL (12.0-16.0); LYMPHOCYTES # (AUTO) 1.3 (1.0-3.2); MEAN CORPUSCULAR HGB CONC 31.4 g/dL (31-35); MONOCYTES # (AUTO) 1.8 (0.2-0.8); MONOCYTES % 8.7 % (4.4-11.3); NEUTROPHILS # (AUTO) 16.8 (2.1-6.9); NEUTROPHILS % 80.5 % (38.7-80.0); RED BLOOD COUNT 3.15 x10e6/uL (3.6-5.1); RED CELL DISTRIBUTION WIDTH 18.8 % (11.7-14.4)
[2021-12-29 06:23] LABS: ALBUMIN 2.5 g/dL (3.5-5.0); ALBUMIN/GLOBULIN RATIO 0.8 (0.8-2.0); ANION GAP 16.5 mmol/L (8-16); CALCIUM 7.1 mg/dL (8.4-10.2); CREATININE, SERUM 3.62 mg/dL (0.57-1.11); POTASSIUM 3.5 mmol/L (3.5-5.1)
[2021-12-29 06:24] LABS: PLATELET COUNT 89 x10e3/uL (140-360)
[2021-12-29] MEDS: INSULIN LISPRO 100 UNIT/1 ML 3ML VIAL SQ SCH ×4 (07:30→21:00)
[2021-12-29] MEDS ORDERED: FUROSEMIDE INJ 10 MG/ML 4 ML VIAL IV ONE (13:30)
[2021-12-29] MEDS: METOPROLOL TARTRATE INJ 1 MG/ML VIAL IV PRN (20:06)
[2021-12-30] VITALS (7 sets, daily range): BP systolic 99–141; BP diastolic 50–92
[2021-12-30] MEDS: METOCLOPRAMIDE HCL 10 MG/2ML VIAL IV SCH ×5 (00:14→23:59)
[2021-12-30 05:44] LABS: ALBUMIN 2.3 g/dL (3.5-5.0); ALBUMIN/GLOBULIN RATIO 0.7 (0.8-2.0); ANION GAP 13.6 mmol/L (8-16); CALCIUM 7.4 mg/dL (8.4-10.2); CREATININE, SERUM 2.11 mg/dL (0.57-1.11); POTASSIUM 3.6 mmol/L (3.5-5.1)
[2021-12-30 05:58] LABS: BASOPHILS # (AUTO) 0.1 (0.0-0.1); BASOPHILS % 0.3 % (0.0-1.0); EOSINOPHILS # (AUTO) 0.2 (0.0-0.4); HEMOGLOBIN 8.9 g/dL (12.0-16.0); LYMPHOCYTES # (AUTO) 1.2 (1.0-3.2); LYMPHOCYTES % 6.5 % (18.0-39.1); MEAN CORPUSCULAR HEMOGLOBIN 26.6 pg (28-32); MEAN CORPUSCULAR HGB CONC 30.7 g/dL (31-35); MEAN CORPUSCULAR VOLUME 86.6 fL (81-99); MONOCYTES # (AUTO) 1.7 (0.2-0.8); MONOCYTES % 9.6 % (4.4-11.3); NEUTROPHILS # (AUTO) 13.6 (2.1-6.9); NEUTROPHILS % 76.7 % (38.7-80.0); PLATELET COUNT 87 x10e3/uL (140-360); RED BLOOD COUNT 3.35 x10e6/uL (3.6-5.1); RED CELL DISTRIBUTION WIDTH 18.4 % (11.7-14.4)
[2021-12-30] MEDS: LEVOTHYROXINE SODIUM 50 MCG TAB PO SCH (06:00)
[2021-12-30] MEDS: DEXTROSE 5% 1,000 ML IV SCH ×2 (06:23→17:09)
[2021-12-30] MEDS: ALBUTEROL SULF 0.083% NEB SOLN 3 ML NEB NEB SCH (07:00)
[2021-12-30] MEDS: IPRATROPIUM BROMIDE 0.02% 2.5 ML NEB NEB SCH ×3 (07:00→20:29)
[2021-12-30] MEDS: INSULIN LISPRO 100 UNIT/1 ML 3ML VIAL SQ SCH ×4 (07:30→21:00)
[2021-12-30] MEDS ORDERED: ALBUTEROL SULF 0.083% NEB SOLN 3 ML NEB NEB PRN (10:00)
[2021-12-30] MEDS ORDERED: FUROSEMIDE INJ 10 MG/ML 4 ML VIAL IV ONE ×2 (12:15→12:30)
[2021-12-31] MEDS: IPRATROPIUM BROMIDE 0.02% 2.5 ML NEB NEB SCH ×4 (00:53→20:08)
[2021-12-31] MEDS: DEXTROSE 5% 1,000 ML IV SCH ×3 (01:15→21:00)
[2021-12-31 05:44] VITALS: BP 159/56
[2021-12-31] MEDS: METOCLOPRAMIDE HCL 10 MG/2ML VIAL IV SCH ×3 (05:47→17:15)
[2021-12-31] MEDS: LEVOTHYROXINE SODIUM 50 MCG TAB PO SCH (05:47)
[2021-12-31 06:11] LABS: BASOPHILS # (AUTO) 0.1 (0.0-0.1); BASOPHILS % 0.5 % (0.0-1.0); EOSINOPHILS # (AUTO) 0.2 (0.0-0.4); EOSINOPHILS % 0.9 % (0.0-6.0); HEMOGLOBIN 8.4 g/dL (12.0-16.0); LYMPHOCYTES # (AUTO) 1.9 (1.0-3.2); LYMPHOCYTES % 8.9 % (18.0-39.1); MEAN CORPUSCULAR HEMOGLOBIN 26.8 pg (28-32); MEAN CORPUSCULAR HGB CONC 31.1 g/dL (31-35); MONOCYTES % 9.2 % (4.4-11.3); NEUTROPHILS # (AUTO) 16.2 (2.1-6.9); NEUTROPHILS % 73.7 % (38.7-80.0); PLATELET COUNT 100 x10e3/uL (140-360); RED BLOOD COUNT 3.14 x10e6/uL (3.6-5.1); RED CELL DISTRIBUTION WIDTH 18.2 % (11.7-14.4)
[2021-12-31 06:57] LABS: ALBUMIN 2.2 g/dL (3.5-5.0); ALBUMIN/GLOBULIN RATIO 0.7 (0.8-2.0); ANION GAP 12.5 mmol/L (8-16); CALCIUM 7.6 mg/dL (8.4-10.2); CREATININE, SERUM 1.44 mg/dL (0.57-1.11); POTASSIUM 3.5 mmol/L (3.5-5.1)
[2021-12-31 07:49] VITALS: BP 151/57
[2021-12-31 07:53] LABS: LYMPHOCYTES % (MANUAL) 8 % (19-48); MONOCYTES % (MANUAL) 10 % (3.4-9.0); MYELOCYTES % (MANUAL) 2 % (0-0); NEUTROPHILS % (MANUAL) 80 % (40-74); PLATELET ESTIMATE MODERATELY DECREASED; PLATELET MORPHOLOGY COMMENT NORMAL; RBC MORPHOLOGY COMMENT NORMAL
[2021-12-31] MEDS: INSULIN LISPRO 100 UNIT/1 ML 3ML VIAL SQ SCH ×4 (08:59→20:53)
[2021-12-31] MEDS: DILTIAZEM HCL ER 120 MG CAP PO SCH (11:30)
[2021-12-31 11:33] LABS: TOTAL IRON BINDING CAPACITY 235 ug/dL (261-478); TRANSFERRIN 168 mg/dL (180-382)
[2021-12-31 11:46] LABS: % IRON SATURATION 9 % (15-50); IRON 22 ug/dL (50-170)
[2021-12-31 11:58] VITALS: BP 131/69
[2021-12-31] MEDS ORDERED: POTASSIUM CHLORIDE 20MEQ/100ML 200 ML IV ONE (12:00)
[2021-12-31 16:16] VITALS: BP 112/74
[2021-12-31] MEDS: METOPROLOL TARTRATE 25 MG TAB PO SCH (17:00)
[2021-12-31] MEDS: IRON SUCROSE 100 MG in SODIUM CHLORIDE 0.9% 100 ML 100 ML IV SCH (18:32)
[2021-12-31 20:14] VITALS: BP 127/44
[2021-12-31 21:00] VITALS: BP 127/44
[2022-01-01] VITALS (8 sets, daily range): BP systolic 94–161; BP diastolic 41–97
[2022-01-01] MEDS: METOCLOPRAMIDE HCL 10 MG/2ML VIAL IV SCH ×4 (00:15→19:51)
[2022-01-01] MEDS: IPRATROPIUM BROMIDE 0.02% 2.5 ML NEB NEB SCH ×4 (00:19→19:55)
[2022-01-01] MEDS: METOPROLOL TARTRATE INJ 1 MG/ML VIAL IV PRN ×2 (01:18→14:34)
[2022-01-01] MEDS: ACETAMINOPHEN 1000 MG/100 ML IV PRN ×2 (02:11→16:56)
[2022-01-01] MEDS: LEVOTHYROXINE SODIUM 50 MCG TAB PO SCH (06:00)
[2022-01-01 06:21] LABS: BASOPHILS # (AUTO) 0.1 (0.0-0.1); BASOPHILS % 0.5 % (0.0-1.0); EOSINOPHILS # (AUTO) 0.2 (0.0-0.4); EOSINOPHILS % 0.8 % (0.0-6.0); HEMATOCRIT 26.5 % (34.2-44.1); HEMOGLOBIN 8.3 g/dL (12.0-16.0); LYMPHOCYTES # (AUTO) 1.7 (1.0-3.2); LYMPHOCYTES % 6.4 % (18.0-39.1); MEAN CORPUSCULAR HEMOGLOBIN 26.4 pg (28-32); MEAN CORPUSCULAR HGB CONC 31.3 g/dL (31-35); MEAN CORPUSCULAR VOLUME 84.4 fL (81-99); MONOCYTES # (AUTO) 2.4 (0.2-0.8); MONOCYTES % 8.9 % (4.4-11.3); NEUTROPHILS # (AUTO) 19.9 (2.1-6.9); NEUTROPHILS % 74.9 % (38.7-80.0); PLATELET COUNT 125 x10e3/uL (140-360); RED BLOOD COUNT 3.14 x10e6/uL (3.6-5.1); RED CELL DISTRIBUTION WIDTH 17.8 % (11.7-14.4)
[2022-01-01 06:49] LABS: ALBUMIN 2.1 g/dL (3.5-5.0); ALBUMIN/GLOBULIN RATIO 0.6 (0.8-2.0); CALCIUM 7.9 mg/dL (8.4-10.2); CREATININE, SERUM 1.85 mg/dL (0.57-1.11); MAGNESIUM 1.9 MG/DL (1.3-2.1)
[2022-01-01 07:19] LABS: LYMPHOCYTES % (MANUAL) 6 % (19-48); METAMYELOCYTES % (MANUAL) 1 % (0-0); MONOCYTES % (MANUAL) 15 % (3.4-9.0); MYELOCYTES % (MANUAL) 1 % (0-0); NEUTROPHILS % (MANUAL) 77 % (40-74); PLATELET ESTIMATE SLIGHTLY DECREASED; PLATELET MORPHOLOGY COMMENT NORMAL; RBC MORPHOLOGY COMMENT NORMAL
[2022-01-01] MEDS: DEXTROSE 5% 1,000 ML IV SCH ×2 (08:56→17:30)
[2022-01-01] MEDS: METOPROLOL TARTRATE 25 MG TAB PO SCH ×2 (09:05→17:00)
[2022-01-01] MEDS: DILTIAZEM HCL ER 120 MG CAP PO SCH (09:05)
[2022-01-01] MEDS: INSULIN LISPRO 100 UNIT/1 ML 3ML VIAL SQ SCH ×4 (09:06→21:29)
[2022-01-01] MEDS: IRON SUCROSE 100 MG in SODIUM CHLORIDE 0.9% 100 ML 100 ML IV SCH (21:26)
[2022-01-02] VITALS (8 sets, daily range): BP systolic 109–137; BP diastolic 41–54
[2022-01-02] MEDS: ACETAMINOPHEN 1000 MG/100 ML IV PRN ×2 (00:40→15:07)
[2022-01-02] MEDS: IPRATROPIUM BROMIDE 0.02% 2.5 ML NEB NEB SCH ×4 (00:40→19:00)
[2022-01-02] MEDS: METOCLOPRAMIDE HCL 10 MG/2ML VIAL IV SCH ×5 (00:43→23:44)
[2022-01-02] MEDS: LEVOTHYROXINE SODIUM 50 MCG TAB PO SCH (05:50)
[2022-01-02] MEDS: DEXTROSE 5% 1,000 ML IV SCH (05:50)
[2022-01-02 06:49] LABS: BASOPHILS # (AUTO) 0.2 (0.0-0.1); BASOPHILS % 0.5 % (0.0-1.0); EOSINOPHILS # (AUTO) 0.2 (0.0-0.4); EOSINOPHILS % 0.7 % (0.0-6.0); HEMATOCRIT 27.8 % (34.2-44.1); HEMOGLOBIN 8.8 g/dL (12.0-16.0); LYMPHOCYTES # (AUTO) 1.5 (1.0-3.2); LYMPHOCYTES % 4.4 % (18.0-39.1); MEAN CORPUSCULAR HEMOGLOBIN 26.9 pg (28-32); MEAN CORPUSCULAR HGB CONC 31.7 g/dL (31-35); MONOCYTES # (AUTO) 2.1 (0.2-0.8); MONOCYTES % 6.2 % (4.4-11.3); NEUTROPHILS # (AUTO) 26.3 (2.1-6.9); NEUTROPHILS % 79.8 % (38.7-80.0); PLATELET COUNT 136 x10e3/uL (140-360); RED BLOOD COUNT 3.27 x10e6/uL (3.6-5.1); RED CELL DISTRIBUTION WIDTH 17.6 % (11.7-14.4)
[2022-01-02] MEDS: INSULIN LISPRO 100 UNIT/1 ML 3ML VIAL SQ SCH ×4 (07:30→20:48)
[2022-01-02 08:58] LABS: LYMPHOCYTES % (MANUAL) 4 % (19-48); MONOCYTES % (MANUAL) 3 % (3.4-9.0); MYELOCYTES % (MANUAL) 4 % (0-0); NEUTROPHILS % (MANUAL) 89 % (40-74); PLATELET ESTIMATE SLIGHTLY DECREASED; PLATELET MORPHOLOGY COMMENT FEW GIANT; RBC MORPHOLOGY COMMENT NORMAL
[2022-01-02 08:59] LABS: POLYCHROMASIA FEW
[2022-01-02] MEDS: DILTIAZEM HCL ER 120 MG CAP PO SCH (09:11)
[2022-01-02] MEDS: METOPROLOL TARTRATE 25 MG TAB PO SCH ×2 (09:12→16:11)
[2022-01-02 12:11] LABS: AMYLASE 23 U/L (25-125); LIPASE 9 U/L (8-78)
[2022-01-02] MEDS ORDERED: SODIUM CHLORIDE 0.9% 1000ML 1,000 ML IV ONE (12:45)
[2022-01-02 13:39] LABS: ANION GAP 17.5 mmol/L (8-16); CALCIUM 8.2 mg/dL (8.4-10.2); CREATININE, SERUM 2.02 mg/dL (0.57-1.11); POTASSIUM 4.5 mmol/L (3.5-5.1)
[2022-01-02] MEDS: IRON SUCROSE 100 MG in SODIUM CHLORIDE 0.9% 100 ML 100 ML IV SCH (17:59)
[2022-01-03] VITALS (8 sets, daily range): BP systolic 118–135; BP diastolic 41–58
[2022-01-03] MEDS: IPRATROPIUM BROMIDE 0.02% 2.5 ML NEB NEB SCH ×5 (01:00→23:06)
[2022-01-03 03:46] LABS: BASOPHILS # (AUTO) 0.1 (0.0-0.1); BASOPHILS % 0.3 % (0.0-1.0); EOSINOPHILS # (AUTO) 0.2 (0.0-0.4); EOSINOPHILS % 0.6 % (0.0-6.0); HEMATOCRIT 29.1 % (34.2-44.1); HEMOGLOBIN 9.2 g/dL (12.0-16.0); LYMPHOCYTES # (AUTO) 1.3 (1.0-3.2); LYMPHOCYTES % 3.9 % (18.0-39.1); MEAN CORPUSCULAR HEMOGLOBIN 26.5 pg (28-32); MEAN CORPUSCULAR HGB CONC 31.6 g/dL (31-35); MEAN CORPUSCULAR VOLUME 83.9 fL (81-99); MONOCYTES # (AUTO) 1.9 (0.2-0.8); MONOCYTES % 5.7 % (4.4-11.3); NEUTROPHILS # (AUTO) 27.3 (2.1-6.9); NEUTROPHILS % 81.9 % (38.7-80.0); PLATELET COUNT 186 x10e3/uL (140-360); RED BLOOD COUNT 3.47 x10e6/uL (3.6-5.1); RED CELL DISTRIBUTION WIDTH 17.9 % (11.7-14.4)
[2022-01-03] MEDS: METOCLOPRAMIDE HCL 10 MG/2ML VIAL IV SCH ×3 (05:04→17:06)
[2022-01-03] MEDS: LEVOTHYROXINE SODIUM 50 MCG TAB PO SCH (05:04)
[2022-01-03] MEDS: ACETAMINOPHEN 1000 MG/100 ML IV PRN ×2 (05:35→16:36)
[2022-01-03 05:55] LABS: BASOPHILS # (AUTO) 0.1 (0.0-0.1); BASOPHILS % 0.4 % (0.0-1.0); EOSINOPHILS # (AUTO) 0.2 (0.0-0.4); EOSINOPHILS % 0.6 % (0.0-6.0); HEMATOCRIT 27.9 % (34.2-44.1); LYMPHOCYTES # (AUTO) 1.4 (1.0-3.2); LYMPHOCYTES % 4.3 % (18.0-39.1); MEAN CORPUSCULAR HEMOGLOBIN 26.9 pg (28-32); MEAN CORPUSCULAR HGB CONC 32.3 g/dL (31-35); MEAN CORPUSCULAR VOLUME 83.3 fL (81-99); MONOCYTES # (AUTO) 1.8 (0.2-0.8); MONOCYTES % 5.8 % (4.4-11.3); NEUTROPHILS # (AUTO) 25.8 (2.1-6.9); NEUTROPHILS % 81.9 % (38.7-80.0); PLATELET COUNT 179 x10e3/uL (140-360); RED BLOOD COUNT 3.35 x10e6/uL (3.6-5.1); RED CELL DISTRIBUTION WIDTH 17.5 % (11.7-14.4)
[2022-01-03 06:15] LABS: CALCIUM 8.3 mg/dL (8.4-10.2); CREATININE, SERUM 2.06 mg/dL (0.57-1.11)
[2022-01-03 07:03] LABS: BAND NEUTROPHILS % (MANUAL) 2 %; EOSINOPHILS % (MANUAL) 1 % (0-7); LYMPHOCYTES % (MANUAL) 6 % (19-48); METAMYELOCYTES % (MANUAL) 1 % (0-0); MONOCYTES % (MANUAL) 5 % (3.4-9.0); NEUTROPHILS % (MANUAL) 84 % (40-74)
[2022-01-03 07:04] LABS: ANISOCYTOSIS MODE; HYPOCHROMASIA SLIGHT
[2022-01-03 07:05] LABS: MICROCYTOSIS SLIGHT; PLATELET ESTIMATE ADEQUATE; PLATELET MORPHOLOGY COMMENT NORMAL; POIKILOCYTOSIS SLIG; TARGET CELLS FEW
[2022-01-03] MEDS: INSULIN LISPRO 100 UNIT/1 ML 3ML VIAL SQ SCH ×4 (07:30→21:00)
[2022-01-03] MEDS: METOPROLOL TARTRATE 25 MG TAB PO SCH ×2 (08:41→17:00)
[2022-01-03] MEDS: DILTIAZEM HCL ER 120 MG CAP PO SCH (08:41)
[2022-01-03] MEDS: SODIUM CHLORIDE 0.9% 1000ML 1,000 ML IV SCH ×2 (16:34→16:35)
[2022-01-03] MEDS: IRON SUCROSE 100 MG in SODIUM CHLORIDE 0.9% 100 ML 100 ML IV SCH (17:06)
[2022-01-04] VITALS (8 sets, daily range): BP systolic 106–143; BP diastolic 37–78
[2022-01-04] MEDS: ACETAMINOPHEN 1000 MG/100 ML IV PRN (03:50)
[2022-01-04 05:42] LABS: BASOPHILS # (AUTO) 0.1 (0.0-0.1); BASOPHILS % 0.4 % (0.0-1.0); EOSINOPHILS # (AUTO) 0.1 (0.0-0.4); EOSINOPHILS % 0.5 % (0.0-6.0); HEMATOCRIT 27.1 % (34.2-44.1); HEMOGLOBIN 8.7 g/dL (12.0-16.0); LYMPHOCYTES # (AUTO) 1.1 (1.0-3.2); LYMPHOCYTES % 3.7 % (18.0-39.1); MEAN CORPUSCULAR HEMOGLOBIN 27.1 pg (28-32); MEAN CORPUSCULAR HGB CONC 32.1 g/dL (31-35); MEAN CORPUSCULAR VOLUME 84.4 fL (81-99); MONOCYTES # (AUTO) 1.6 (0.2-0.8); MONOCYTES % 5.4 % (4.4-11.3); NEUTROPHILS # (AUTO) 23.9 (2.1-6.9); NEUTROPHILS % 82.7 % (38.7-80.0); PLATELET COUNT 205 x10e3/uL (140-360); RED BLOOD COUNT 3.21 x10e6/uL (3.6-5.1); RED CELL DISTRIBUTION WIDTH 17.9 % (11.7-14.4)
[2022-01-04 06:00] LABS: ALBUMIN 2.2 g/dL (3.5-5.0); ALBUMIN/GLOBULIN RATIO 0.6 (0.8-2.0); ANION GAP 14.8 mmol/L (8-16); CALCIUM 8.4 mg/dL (8.4-10.2); CREATININE, SERUM 1.86 mg/dL (0.57-1.11); POTASSIUM 3.8 mmol/L (3.5-5.1)
[2022-01-04] MEDS: METOCLOPRAMIDE HCL 10 MG/2ML VIAL IV SCH ×4 (06:00→18:02)
[2022-01-04] MEDS: LEVOTHYROXINE SODIUM 50 MCG TAB PO SCH (06:00)
[2022-01-04] MEDS: IPRATROPIUM BROMIDE 0.02% 2.5 ML NEB NEB SCH ×3 (06:59→19:48)
[2022-01-04 07:24] LABS: EOSINOPHILS % (MANUAL) 1 % (0-7); LYMPHOCYTES % (MANUAL) 4 % (19-48); METAMYELOCYTES % (MANUAL) 3 % (0-0); MONOCYTES % (MANUAL) 6 % (3.4-9.0); NEUTROPHILS % (MANUAL) 86 % (40-74); PLATELET ESTIMATE ADEQUATE; RBC MORPHOLOGY COMMENT NORMAL
[2022-01-04 07:25] LABS: PLATELET MORPHOLOGY COMMENT FEW GIANT
[2022-01-04] MEDS: INSULIN LISPRO 100 UNIT/1 ML 3ML VIAL SQ SCH ×4 (07:30→21:00)
[2022-01-04] MEDS: DILTIAZEM HCL ER 120 MG CAP PO SCH (09:00)
[2022-01-04] MEDS: METOPROLOL TARTRATE 25 MG TAB PO SCH ×2 (09:00→16:22)
[2022-01-04] MEDS ORDERED: ONDANSETRON HCL 4 MG ORAL DISINTEGRATING TAB PO PRN (11:00)
[2022-01-04] MEDS ORDERED: DOCUSATE SODIUM LIQD 100 MG/10 ML UDC NG PRN (14:15)
[2022-01-04] MEDS ORDERED: ACETAMINOPHEN 1000 MG/100 ML IV PRN (14:15)
[2022-01-04] MEDS: SODIUM CHLORIDE 0.9% 1000ML 1,000 ML IV SCH (18:03)
[2022-01-04] MEDS ORDERED: DIGOXIN INJ 0.25 MG/ML 2 ML AMP IV ONE (22:00)
[2022-01-04] MEDS: METOPROLOL TARTRATE INJ 1 MG/ML VIAL IV PRN (22:00)
[2022-01-05] VITALS (7 sets, daily range): BP systolic 124–164; BP diastolic 46–55
[2022-01-05] MEDS: METOCLOPRAMIDE HCL 10 MG/2ML VIAL IV SCH ×5 (01:00→23:07)
[2022-01-05] MEDS: IPRATROPIUM BROMIDE 0.02% 2.5 ML NEB NEB SCH ×4 (01:30→19:08)
[2022-01-05] MEDS: SODIUM CHLORIDE 0.9% 1000ML 1,000 ML IV SCH ×2 (04:15→05:18)
[2022-01-05] MEDS: LEVOTHYROXINE SODIUM 50 MCG TAB PO SCH (05:39)
[2022-01-05 06:57] LABS: BASOPHILS # (AUTO) 0.1 (0.0-0.1); BASOPHILS % 0.4 % (0.0-1.0); EOSINOPHILS # (AUTO) 0.1 (0.0-0.4); EOSINOPHILS % 0.6 % (0.0-6.0); HEMATOCRIT 31.3 % (34.2-44.1); HEMOGLOBIN 9.5 g/dL (12.0-16.0); LYMPHOCYTES % 4.1 % (18.0-39.1); MEAN CORPUSCULAR HEMOGLOBIN 27.1 pg (28-32); MEAN CORPUSCULAR HGB CONC 30.4 g/dL (31-35); MEAN CORPUSCULAR VOLUME 89.2 fL (81-99); MONOCYTES # (AUTO) 1.2 (0.2-0.8); MONOCYTES % 4.9 % (4.4-11.3); NEUTROPHILS # (AUTO) 20.9 (2.1-6.9); NEUTROPHILS % 82.9 % (38.7-80.0); PLATELET COUNT 220 x10e3/uL (140-360); RED BLOOD COUNT 3.51 x10e6/uL (3.6-5.1); RED CELL DISTRIBUTION WIDTH 19.4 % (11.7-14.4)
[2022-01-05 07:21] LABS: ALBUMIN 2.3 g/dL (3.5-5.0); ALBUMIN/GLOBULIN RATIO 0.6 (0.8-2.0); ANION GAP 17.4 mmol/L (8-16); CALCIUM 8.7 mg/dL (8.4-10.2); CREATININE, SERUM 1.49 mg/dL (0.57-1.11); MAGNESIUM 1.8 MG/DL (1.3-2.1); POTASSIUM 4.4 mmol/L (3.5-5.1)
[2022-01-05] MEDS: INSULIN LISPRO 100 UNIT/1 ML 3ML VIAL SQ SCH ×4 (07:30→22:30)
[2022-01-05] MEDS: METOPROLOL TARTRATE 25 MG TAB PO SCH ×2 (09:18→17:55)
[2022-01-05] MEDS: DILTIAZEM HCL ER 120 MG CAP PO SCH (09:18)
[2022-01-05] MEDS ORDERED: ASPIRIN 81 MG ENTERIC COATED PO ONE (09:45)
[2022-01-05 12:02] LABS: ANISOCYTOSIS MODERATE; BAND NEUTROPHILS % (MANUAL) 2 %; EOSINOPHILS % (MANUAL) 1 % (0-7); HYPOCHROMASIA SLIGHT; LYMPHOCYTES % (MANUAL) 5 % (19-48); METAMYELOCYTES % (MANUAL) 1 % (0-0); MYELOCYTES % (MANUAL) 1 % (0-0); NEUTROPHILS % (MANUAL) 89 % (40-74); PLATELET ESTIMATE ADEQUATE; PLATELET MORPHOLOGY COMMENT NORMAL; POLYCHROMASIA FEW; PROMYELOCYTES % (MANUAL) 1 % (0-0); RBC MORPHOLOGY COMMENT ABNORMAL
[2022-01-05] MEDS: ACETAMINOPHEN 325 MG TAB PO PRN (23:06)
[2022-01-06] VITALS: BP 158/48
[2022-01-06] MEDS: SODIUM CHLORIDE 0.9% 1000ML 1,000 ML IV SCH ×3 (00:15→10:23)
[2022-01-06] MEDS: IPRATROPIUM BROMIDE 0.02% 2.5 ML NEB NEB SCH ×3 (00:38→13:15)
[2022-01-06 04:00] VITALS: BP 121/83
[2022-01-06] MEDS: METOCLOPRAMIDE HCL 10 MG/2ML VIAL IV SCH ×2 (05:52→11:25)
[2022-01-06] MEDS: LEVOTHYROXINE SODIUM 50 MCG TAB PO SCH (05:52)
[2022-01-06] MEDS: INSULIN LISPRO 100 UNIT/1 ML 3ML VIAL SQ SCH ×3 (07:30→16:30)
[2022-01-06 07:31] VITALS: BP 121/83
[2022-01-06 08:50] VITALS: BP 149/47
[2022-01-06] MEDS ORDERED: ASPIRIN 81 MG ENTERIC COATED PO SCH (09:00)
[2022-01-06] MEDS: METOPROLOL TARTRATE 25 MG TAB PO SCH ×2 (09:11→17:23)
[2022-01-06] MEDS: DILTIAZEM HCL ER 120 MG CAP PO SCH (09:11)
[2022-01-06 09:31] VITALS: BP 149/47
[2022-01-06] MEDS: ACETAMINOPHEN 325 MG TAB PO PRN (11:24)
[2022-01-06 12:30] VITALS: BP 138/67
[2022-01-06] MEDS ORDERED: PANTOPRAZOLE SOD 40 MG TABEC PO SCH (17:30)
[2022-01-06] MEDS ORDERED: METOCLOPRAMIDE HCL 10 MG TAB PO SCH (18:00)
[2022-01-06] MEDS ORDERED: FUROSEMIDE 40 MG TAB PO SCH (18:00)
== END 2022-01-06 17:49 | DRG 871 ==
LOC: ER 12:23 → ERHOLD 15:10 → MED/SURG3 17:10 → ICU 12-25 20:45 → MED/SURG3 12-27 19:38
PROVIDERS: ADMIT Internal Medicine; ATTEND Internal Medicine
PROC: 02HV33Z Insertion of Infusion Device into Superior Vena Cava, Percutaneous Approach (ICD-10-PCS; principal; 2021-12-16)
PROC: 3E04329 Introduction of Other Anti-infective into Central Vein, Percutaneous Approach (ICD-10-PCS; 2021-12-16)
PROC: 02HV33Z Insertion of Infusion Device into Superior Vena Cava, Percutaneous Approach (ICD-10-PCS; 2021-12-26)
PROC: 30243N1 Transfusion of Nonautologous Red Blood Cells into Central Vein, Percutaneous Approach (ICD-10-PCS; 2021-12-26)
PROC: 3E043XZ Introduction of Vasopressor into Central Vein, Percutaneous Approach (ICD-10-PCS; 2021-12-26)
DX: A41.9 Sepsis, unspecified organism (principal); N17.0 Acute kidney failure with tubular necrosis; I50.33 Acute on chronic diastolic (congestive) heart failure; J96.22 Acute and chronic respiratory failure with hypercapnia; J96.21 Acute and chronic respiratory failure with hypoxia; R57.1 Hypovolemic shock; Z68.42 Body mass index [BMI] 45.0-49.9, adult; J44.1 Chronic obstructive pulmonary disease with (acute) exacerbation; I13.0 Hypertensive heart and chronic kidney disease with heart failure and stage 1 through stage 4 chronic kidney disease, or unspecified chronic kidney disease; D62 Acute posthemorrhagic anemia; N13.6 Pyonephrosis; K57.32 Diverticulitis of large intestine without perforation or abscess without bleeding; J44.0 Chronic obstructive pulmonary disease with (acute) lower respiratory infection; E87.1 Hypo-osmolality and hyponatremia; E66.01 Morbid (severe) obesity due to excess calories; G47.33 Obstructive sleep apnea (adult) (pediatric); E11.22 Type 2 diabetes mellitus with diabetic chronic kidney disease; Z20.822 Contact with and (suspected) exposure to COVID-19; I48.0 Paroxysmal atrial fibrillation; Z79.01 Long term (current) use of anticoagulants; Z79.899 Other long term (current) drug therapy; K21.9 Gastro-esophageal reflux disease without esophagitis; N94.89 Other specified conditions associated with female genital organs and menstrual cycle; N18.32 Chronic kidney disease, stage 3b; I95.9 Hypotension, unspecified; E87.70 Fluid overload, unspecified; R33.8 Other retention of urine; D69.6 Thrombocytopenia, unspecified; E87.6 Hypokalemia; R53.81 Other malaise; Z87.891 Personal history of nicotine dependence; Z88.7 Allergy status to serum and vaccine; E78.5 Hyperlipidemia, unspecified
CPT/HCPCS: 36415; 36568; 36600; 71045; 71046; 71260; 74018; 74176; 74177; 76770; 80048; 80053; 81001; 82150; 82550; 82553; 82607; 82746; 82805; 82948; 83036; 83540; 83605; 83690; 83735; 83880; 84100; 84443; 84466; 84484; 85014; 85018; 85025; 85610; 85730; 86850; 86900; 86920; 87040; 87086; 93005; 93306; 93925; 93976; 94640; 94660; 94799; 96360; 96361; 97139; 99251; 99285; J0696; J1160; J1170; J1644; J1650; J1756; J1940; J2185; J2270; J2405; J2765; J2930; J3480; J7030; J7040; J7050; J7070; J7512; P9016; P9045; Q0162; Q9967; U0002